=== PATIENT | male | born 1985 | race Caucasian/White ===

== ENCOUNTER 2017-04-13 05:58 | Day surgery (SDC) | payer BC ==
[2017-04-04 15:08] VITALS: BMI 31.7
[2017-04-13] MEDS ORDERED: LIDOCAINE HCL/PF 2% SDV 5ML VIAL ONE (07:03)
[2017-04-13] MEDS ORDERED: PROPOFOL 20 ML ONE ×2 (07:03)
[2017-04-13] MEDS ORDERED: SUCCINYLCHOLINE CHLORIDE 200 MG/10 ML VIAL ONE (07:03)
[2017-04-13] MEDS ORDERED: ATROPINE SO4 0.4 MG/1 ML VIAL ONE (07:03)
[2017-04-13] MEDS ORDERED: MIDAZOLAM HCL 2 MG/2 ML SINGLE DOSE VIAL ONE ×2 (07:09)
[2017-04-13] MEDS ORDERED: LIDOCAINE HCL 2% (20ML MULTI-DOSE VIAL) NR ONE (07:17)
[2017-04-13] MEDS ORDERED: LIDOCAINE HCL 2% (50ML VIAL) INF ONE (07:49)
[2017-04-13] MEDS ORDERED: DEXAMETHASONE SOD PHOSPHATE 4 MG/1 ML VIAL ONE (07:51)
[2017-04-13] MEDS ORDERED: KETOROLAC TROMETHAMINE 30 MG/1 ML VIAL ONE (07:51)
[2017-04-13] MEDS ORDERED: ONDANSETRON 4 MG/2 ML VIAL ONE (07:51)
[2017-04-13] MEDS ORDERED: BUPIVACAINE HCL 0.25% 125 MG/50 ML VIAL ONE (08:00)
[2017-04-13] MEDS ORDERED: BUPIVACAINE HCL/PF 0.25% (2.5MG/ML) 10 ML VIAL IJ ONE (08:03)
[2017-04-13] MEDS ORDERED: ACETAMINOPHEN 325 MG TABLET (FP) PO PRN (08:27)
[2017-04-13] MEDS ORDERED: ONDANSETRON 4 MG/2 ML VIAL IVPUSH PRN (08:27)
[2017-04-13] MEDS ORDERED: oxyCODONE HCL 5 MG TABLET PO PRN (08:27)
[2017-04-13] MEDS ORDERED: LACTATED RINGERS SOLUTION 1,000 ML IV SCH (08:30)
[2017-04-13 08:43] VITALS: BP 124/78; PULSE 61; TEMP 98
--- NOTE | 2017-04-18 14:52 | PATH ---
Surgical Pathology Report Patient Name: JONATHAN ROBLES Med. Rec. #: [id number] /Age/Gender: 1985 (Age: 32) / M Account: [id number] Location: [facility] AMBULATORY Taken: 04/13/2017 Received: 04/13/2017 Reported: 04/18/2017 Physicians: Rashid Isaacs M.D. Specimen(s) Received RIGHT THUMB MASS Clinical History Right thumb mass Final Diagnosis THUMB, RIGHT, MASS, EXCISION: GLOMUS TUMOR. SEE COMMENT. Comment: Immunohistochemical stains performed and interpreted at [place], [place] ([id number]) show the neoplasm is positive smooth muscle actin and vimentin, while negative for desmin. Histomorphology and immunophenotype supports the above findings. Electronically Signed Malgorzata Taveras M.D. Gross Description Received in formalin labeled "right thumb mass," is a 0.9 x 0.4 x 0.3 cm mckinnon, irregular portion of soft tissue. The specimen is submitted in toto in one cassette. 04/14/201704/14/2017
--- NOTE | 2017-04-19 09:43 | OP ---
DATE OF OPERATION: 04/13/2017 PREOPERATIVE DIAGNOSIS: Left thumb mass. POSTOPERATIVE DIAGNOSIS: Left thumb mass. OPERATIVE PROCEDURE: Left thumb mass excision. SURGEON: Rashid Isaacs MD ANESTHESIA: Local with sedation. COMPLICATIONS: None. ESTIMATED BLOOD LOSS: Minimal. INDICATIONS: The patient is a 32-year-old male with the above findings, indicated for operative treatment. The risks, benefits, and alternatives were discussed with the patient at length. Proper informed consent was obtained. PROCEDURE: After proper identification of the patient and the correct operative site, the patient was brought to the operating room and placed supine on the operating room table. Prominences were well padded. Sedation was given by the anesthesiologist. Local anesthesia was given with 2% lidocaine. Left upper extremity was prepped and draped in the usual sterile fashion. Esmarch bandage was used to exsanguinate the left upper extremity. Tourniquet was inflated to 250 mmHg. A mid-axial incision was made on the ulnar aspect of the thumb centered over the base of the distal phalanx. Incision was taken sharply through the skin with blunt and sharp dissection of subcutaneous tissues. Mass was visualized and appeared to be glomus tumor. It was found to be tracking from underneath the sterile matrix, and this was carefully elevated to remove the mass. The mass was excised in whole and sent for pathologic evaluation. Wound was irrigated with copious amounts of normal saline and repaired with a 5-0 nylon sutures. Sterile dressings were applied. Patient was reversed from anesthesia and brought to the recovery room in stable condition. He tolerated the procedure well. Ivory [id number]
== END 2017-04-13 08:44 | disposition home or self-care (01) ==
LOC: FASU 05:58
PROVIDERS: ATTEND Orthopaedic Surgery Hand Surgery
PROC: 0JBJ0ZZ Excision of Right Hand Subcutaneous Tissue and Fascia, Open Approach (ICD-10-PCS; principal; 2017-04-13 07:44)
DX: D18.01 Hemangioma of skin and subcutaneous tissue (principal)
CPT/HCPCS: 88307-TC

== ENCOUNTER 2018-07-20 14:36 | Emergency (ER) | payer OTHER, BC ==
--- NOTE | 2018-07-20 14:41 | PDOC ---
Rapid Medical Evaluation Time Seen by Provider: 07/20/18 14:40 Medical Evaluation: Allergies Allergy/AdvReac Type Severity Reaction Status Date / Time No Known Allergies Allergy Verified 04/04/17 15:01 07/20/18 14:40 I performed a brief in-person evaluation of this patient. Chief complaint: YPD, blood exposure to intact skin of hands. No mucous membrane exposure. I have ordered the following: None Patient will proceed to the ED for further evaluation. Discharge Disposition - Diagnosis Exposure to blood - Referrals - Patient Instructions - Post Discharge Activity
[2018-07-20 14:42] VITALS: BP 132/92; PULSE 85; TEMP 97.9; BMI 31.0
--- NOTE | 2018-07-20 15:24 | PDOC ---
*Physical Exam - Vital Signs Last Vital Signs Temp Pulse Resp BP Pulse Ox 97.9 F 85 17 132/92 100 07/20/18 14:41 07/20/18 14:41 07/20/18 14:41 07/20/18 14:41 07/20/18 14:41 <Bryant Saenz - Last Filed: 07/20/18 15:20> - Vital Signs Last Vital Signs Temp Pulse Resp BP Pulse Ox 97.9 F 85 17 132/92 100 07/20/18 14:41 07/20/18 14:41 07/20/18 14:41 07/20/18 14:41 07/20/18 14:41 - Physical Exam Comments: 07/20/18 15:25 GENERAL: The patient is awake, alert, and fully oriented, in no acute distress. HEAD:[Normal with no signs of trauma. EYES: Pupils equal, round and reactive to light, extraocular movements intact, sclera anicteric, conjunctiva clear. EXTREMITIES: Normal range of motion, no edema. NEUROLOGICAL: Normal speech, normal gait. PSYCH: Normal mood, normal affect. SKIN: Warm, Dry, normal turgor, no rashes or lesions noted. 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 No mucous membrane exposure , no open lesions. Source patient does not have any known medical illnesses. Hands cleansed and without any residual blood, no open lesions noted Neurovascular intact 33-year-old special [employer] with no mucosal fluid/blood exposure. Cleansed No indication for prophylaxis pt reassured <Bryant Saenz - Last Filed: 07/20/18 15:20> *DC/Admit/Observation/Transfer <Bryant Saenz - Last Filed: 07/20/18 15:20> - Attestations Scribe Attestion: 07/20/18 15:27 Documentation prepared by Melia Handy, acting as medical staff physician for Bryant Saenz MD <Melia Handy - Last Filed: 07/20/18 15:33> Diagnosis at time of Disposition: Exposure to blood - Discharge Dispostion Disposition: HOME Condition at time of disposition: Stable - Referrals - Patient Instructions Printed Discharge Instructions: How to Handle Body Fluid Exposure -- Non- Healthcare Worker (At Home, Caregi Additional Instructions: Activity as tolerated. Stay hydrated. Since there was no mucosal exposure, prophylaxis against transmitted diseases is not necessary. You should follow up with your primary doctor as needed regarding today's emergency department visit. Return to the emergency department for any new or concerning symptoms, particularly skin irritation, fever/chills, pain. - Post Discharge Activity Forms/Work/School Notes: Back to Work
== END 2018-07-20 16:18 | disposition home or self-care (01) ==
LOC: JER 14:36
DX: Z77.21 Contact with and (suspected) exposure to potentially hazardous body fluids (principal); Y35.891A Legal intervention involving other specified means, law enforcement official injured, initial encounter; Y93.89 Activity, other specified; Y92.89 Other specified places as the place of occurrence of the external cause; Y99.0 Civilian activity done for income or pay
CPT/HCPCS: 99281-25

== ENCOUNTER 2018-10-09 10:07 | Emergency (ER) | payer OTHER, BC | END 2018-10-09 11:37 | disposition home or self-care (01) | LOC: JERFT 10:07 ==